=== PATIENT | female | born 1965 | race Caucasian/White ===

== ENCOUNTER 2022-09-21 13:28 | Emergency (ER) | payer OTHER ==
[~2022-09-21] VITALS: Ht 165.1 cm; Wt 43.8 kg
[2022-09-21 14:02] VITALS: BP 108/81
--- NOTE | 2022-09-21 14:02 | NUR ---
PT AMBULATED TO BED 6
[2022-09-21] MEDS ORDERED: fentaNYL citrate 0.05 MG/ML VIAL IM ONE (14:10)
--- NOTE | 2022-09-21 14:21 | NUR ---
ADMINISTERED SCHEDULED MEDS PER ER MD ORDERS
[2022-09-21 14:40] LABS: BASOPHILS # (AUTO) 0.1 K/uL (0.00-0.22); BASOPHILS % (AUTO) 1.5 % (0.0-2.0); EOSINOPHILS # (AUTO) 0.2 K/uL (0-0.4); HEMATOCRIT 41.4 % (36-48); HEMOGLOBIN 14.1 g/dL (12.0-16.0); LYMPHOCYTES # (AUTO) 1.9 K/uL (2.5-16.5); LYMPHOCYTES % (AUTO) 21.2 % (20.5-51.1); MEAN CORPUSCULAR HEMOGLOBIN 37 pg (27-31); MEAN CORPUSCULAR HGB CONC 34 g/dL (33-37); MEAN CORPUSCULAR VOLUME 108.5 fL (80-94); MONOCYTES # (AUTO) 0.7 K/uL (0.8-1.0); MONOCYTES % (AUTO) 7.9 % (1.7-9.3); NEUTROPHILS % (AUTO) 67.4 % (42.2-75.2); PLATELET COUNT (AUTO) 176 K/uL (140-450); RED BLOOD CELL COUNT(AUTO) 3.82 MIL/uL (4.20-5.40); RED CELL DISTRIBUTION WIDTH 15.4 % (11.6-13.7); WHITE BLOOD COUNT (AUTO) 8.9 K/uL (4.8-10.8)
--- NOTE | 2022-09-21 14:50 | NUR ---
XR TECH AT BEDSIDE
[2022-09-21 15:05] LABS: ANION GAP 19.1 (8-16); CREATININE 0.7 mg/dL (0.6-1.3); POTASSIUM 4.1 mmol/L (3.5-5.1)
[2022-09-21] MEDS ORDERED: IBUP-2218 PO (15:22)
[2022-09-21] MEDS ORDERED: ACET-10509 PO (15:22)
[2022-09-21 15:28] VITALS: BP 113/77
--- NOTE | 2022-09-21 15:28 | NUR ---
pt left without dx paper, see discharge/dispo note
== END 2022-09-21 15:28 | disposition home or self-care (01) ==
LOC: MED 13:28
DX: M70.71 Other bursitis of hip, right hip (principal); F17.200 Nicotine dependence, unspecified, uncomplicated; Z79.899 Other long term (current) drug therapy; Z71.6 Tobacco abuse counseling; W19.XXXA Unspecified fall, initial encounter; Y93.89 Activity, other specified; Y92.89 Other specified places as the place of occurrence of the external cause; Y99.8 Other external cause status
CPT/HCPCS: 36415; 73502; 73552; 80048; 85025; 96372; 99284; J3010

== ENCOUNTER 2022-11-16 11:20 | Emergency (ER) | payer OTHER ==
[~2022-11-16] VITALS: Ht 154.9 cm; Wt 43.1 kg
[~2022-11-16 11:20] MED LIST: ACET-10509 PO; IBUP-2218 PO
[2022-11-16 11:29] VITALS: BP 90/50
--- NOTE | 2022-11-16 11:31 | NUR ---
PATIENT PRESENTS TO THE ED WITH REPORT OF RECTAL BLEEDING X 4 DAYS. PATIETN REPORTS GENERALIZED WEAKNESS, DENIES N/V. AMBULATORY WITH STEADY GAIT, ALERT AND ORIENTED X 4. NO S/S OF ACUTE DISTRESS. PMH COPD
[2022-11-16 12:05] LABS: BASOPHILS # (AUTO) 0.1 K/uL (0.00-0.22); BASOPHILS % (AUTO) 1.5 % (0.0-2.0); EOSINOPHILS # (AUTO) 0.1 K/uL (0-0.4); EOSINOPHILS % (AUTO) 2.3 % (0.0-4.0); HEMATOCRIT 35.2 % (36-48); HEMOGLOBIN 11.9 g/dL (12.0-16.0); LYMPHOCYTES # (AUTO) 2.1 K/uL (2.5-16.5); LYMPHOCYTES % (AUTO) 35.6 % (20.5-51.1); MEAN CORPUSCULAR HEMOGLOBIN 37 pg (27-31); MEAN CORPUSCULAR HGB CONC 34 g/dL (33-37); MEAN CORPUSCULAR VOLUME 109.4 fL (80-94); MONOCYTES # (AUTO) 0.8 K/uL (0.8-1.0); MONOCYTES % (AUTO) 13.5 % (1.7-9.3); NEUTROPHILS # (AUTO) 2.8 K/uL (1.8-7.7); NEUTROPHILS % (AUTO) 47.1 % (42.2-75.2); PLATELET COUNT (AUTO) 193 K/uL (140-450); RED BLOOD CELL COUNT(AUTO) 3.22 MIL/uL (4.20-5.40); RED CELL DISTRIBUTION WIDTH 14.9 % (11.6-13.7)
[2022-11-16 12:22] LABS: ALBUMIN 3.8 g/dL (3.4-5.0); CARBON DIOXIDE 26.1 mmol/L (21-32); CREATININE 0.7 mg/dL (0.6-1.3); POTASSIUM 3.1 mmol/L (3.5-5.1); TOTAL BILIRUBIN 0.1 mg/dL (0.0-1.0)
--- NOTE | 2022-11-16 19:30 | NUR ---
56yo F here for rectal bleeding x 1 weeks getting worse over 2 days. Admits to lower abd pain, 9/10 at this time. History of rectal prolapse. Abdomen soft, nontender, nondistended. Attached to monitor. Will start IV. Pending CT scan of abdomen at this time.
[2022-11-16] MEDS ORDERED: MORPHINE SULFATE 4 MG/ML SYR IVP ONE (20:30)
--- NOTE | 2022-11-16 20:32 | NUR ---
Complaining of 9/10 lower abdominal pain. Morphine 4mg IV given
[2022-11-16] MEDS ORDERED: POTASSIUM CHLORIDE 10 MEQ TABER PO ONE (21:10)
[2022-11-16] MEDS ORDERED: ACET-10509 PO (21:11)
--- NOTE | 2022-11-16 21:30 | NUR ---
Abdominal pain improved to 5/10. No distress now.
[2022-11-16 22:12] VITALS: BP 133/88
--- NOTE | 2022-11-16 22:15 | NUR ---
Cleared to discharge home. Instructions given. CD of CT scan provided to pt. IV removed. Ambulated out of ED c steady gait. No distress. 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
== END 2022-11-16 22:15 | disposition home or self-care (01) ==
LOC: MED 11:20
DX: K52.9 Noninfective gastroenteritis and colitis, unspecified (principal); E87.6 Hypokalemia; J44.9 Chronic obstructive pulmonary disease, unspecified; F41.9 Anxiety disorder, unspecified; F17.210 Nicotine dependence, cigarettes, uncomplicated; Z79.899 Other long term (current) drug therapy; Z79.1 Long term (current) use of non-steroidal anti-inflammatories (NSAID)
CPT/HCPCS: 36415; 71045; 74177; 80053; 85025; 96374; 99285; J2270; Q9967

== ENCOUNTER 2023-01-03 19:42 | Emergency (ER) | payer MEDICAID, OTHER ==
[~2023-01-03] VITALS: Ht 167.6 cm; Wt 44.5 kg
[2023-01-03 19:49] VITALS: BP 121/82
--- NOTE | 2023-01-03 19:49 | NUR ---
[facility] TO BED #5
--- NOTE | 2023-01-03 20:18 | NUR ---
Dr. Schaeffer examining patient.
--- NOTE | 2023-01-03 20:30 | NUR ---
57 Y/O F presents with pain 10/10 [id number] from buttocks and pt stated "i have not followed up with any doctors." pt is a&ox3, skin intact, verbally agressive, respirations even and unlabored. pt continuiusly asked for pain meds and tylenol. pt appeared intoxicated and pt stated "i drink everyday and today i drank a pint of liquor." PMH- copd, colonoscopy NKA
--- NOTE | 2023-01-03 20:30 | NUR ---
pt yelling " i need a doctor no one is helping me i want medication where is my medication if something happens i will angelina you guys and you guys will be fucked." pt was educated on how she needs to be examined by a doctor before the nurse can administer any medication.
[2023-01-03] MEDS: ACETAMINOPHEN 325 MG TAB PO ONE (20:52)
--- NOTE | 2023-01-03 21:00 | NUR ---
pt continuing to be verbal and yell "i need a docotr i need to be seen i want tylenol." pt was reminded tylenol was administed once doctor put in orders. pt stated " its not workiong i need more meds."
[2023-01-03 21:03] LABS: BASOPHILS % (AUTO) 0.8 % (0.0-2.0); EOSINOPHILS % (AUTO) 0.5 % (0.0-4.0); HEMATOCRIT 39.1 % (36-48); HEMOGLOBIN 13.1 g/dL (12.0-16.0); LYMPHOCYTES % (AUTO) 15.3 % (20.5-51.1); MEAN CORPUSCULAR HEMOGLOBIN 37 pg (27-31); MEAN CORPUSCULAR HGB CONC 34 g/dL (33-37); MEAN CORPUSCULAR VOLUME 110.3 fL (80-94); MONOCYTES # (AUTO) 0.5 K/uL (0.8-1.0); MONOCYTES % (AUTO) 8.4 % (1.7-9.3); NEUTROPHILS # (AUTO) 4.9 K/uL (1.8-7.7); PLATELET COUNT (AUTO) 146 K/uL (140-450); RED BLOOD CELL COUNT(AUTO) 3.55 MIL/uL (4.20-5.40); WHITE BLOOD COUNT (AUTO) 6.5 K/uL (4.8-10.8)
[2023-01-03 21:25] LABS: ALBUMIN 3.5 g/dL (3.4-5.0); ANION GAP 27.3 (8-16); ASPARTATE AMINOTRANSFERASE 308 U/L (15-37); CARBON DIOXIDE 21.6 mmol/L (21-32); CHLORIDE 95 mmol/L (98-107); CREATININE 0.8 mg/dL (0.6-1.3); GFR ARICAN-AMERICAN 95 mL/min (>90); GLUCOSE 86 mg/dL (74-106); POTASSIUM 3.9 mmol/L (3.5-5.1); SODIUM SERUM 140 mmol/L (136-145); TOTAL BILIRUBIN 0.5 mg/dL (0.0-1.0); UREA NITROGEN, BLOOD 18 mg/dL (7-18)
--- NOTE | 2023-01-03 21:25 | NUR ---
[place] in EDM - 01/04/23 at 0042 by MARIA TPB pt refused another IV after infiltration of first IV due to pt tugging on IV line. pt stated " I do not need fluids or whatever i need pain meds or tylenol."
[2023-01-03 21:28] LABS: ACETAMINOPHEN < 0.5 ug/ml (10-30)
--- NOTE | 2023-01-03 21:30 | NUR ---
pt continues to yell "nurse nurse nurse nurse nurse, i need pain meds." pt reminded tylenol was administered." pt went on to call the nurs "a bitch" and roll over in bed.
[2023-01-03] MEDS: NACL 0.9% 1,000 ML IV ONE (22:33)
--- NOTE | 2023-01-03 23:27 | NUR ---
IV INFILITRATED. IV REMOVED. ERMD NOTIFIED
--- NOTE | 2023-01-03 23:30 | NUR ---
pt refused another IV attempt after first infiltration due to pt tugging on line. "pt stated i do not need fluids or whatever i need pain meds and tylenol."
--- NOTE | 2023-01-03 23:45 | NUR ---
pt stated "i want to go home, i want to go home and sleep. im tired."
--- NOTE | 2023-01-03 23:52 | NUR ---
PT AMBULATED TO RESTROOM WITHOUT ASSISTANCE
--- NOTE | 2023-01-04 00:03 | NUR ---
Dr. Rivas examining patient.
--- NOTE | 2023-01-04 00:15 | NUR ---
pt ambulated to restroom without assistance
--- NOTE | 2023-01-04 00:24 | NUR ---
Patient discharged with v/s stable. Written and verbal after care instructions given and explained. Patient verbalized understanding. Ambulatory with steady gait. All questions addressed prior to discharge. Advised to follow up with PMD.
== END 2023-01-04 00:24 | disposition home or self-care (01) ==
LOC: MED 19:42
DX: K62.89 Other specified diseases of anus and rectum (principal); F10.129 Alcohol abuse with intoxication, unspecified; E86.0 Dehydration; J44.9 Chronic obstructive pulmonary disease, unspecified; F41.9 Anxiety disorder, unspecified; F17.200 Nicotine dependence, unspecified, uncomplicated; Z86.69 Personal history of other diseases of the nervous system and sense organs; Z79.899 Other long term (current) drug therapy; Z79.1 Long term (current) use of non-steroidal anti-inflammatories (NSAID); Y90.8 Blood alcohol level of 240 mg/100 ml or more
CPT/HCPCS: 36415; 80053; 84484; 85025; 93005; 96360; 99284; G0480; G0482; J7030

== ENCOUNTER 2023-12-10 23:15 | Inpatient (IN) | payer OTHER ==
[~2023-12-10] VITALS: Ht 160 cm; Wt 44.0 kg
[2023-12-10 23:29] VITALS: BP 113/74; PULSE 94; RESP 20; TEMP 97; O2SAT 98
[2023-12-11] MEDS ORDERED: MORPHINE SULFATE 4 MG/ML SYR ONE (01:18)
[2023-12-11] MEDS: MORPHINE SULFATE 4 MG/ML SYR IVP ONE ×2 (01:29→03:50)
[2023-12-11] MEDS: NACL 0.9% 1,000 ML IV ONE (01:32)
[2023-12-11 01:33] LABS: BASOPHILS # (AUTO) 0.1 K/uL (0.00-0.22); BASOPHILS % (AUTO) 1.2 % (0.0-2.0); EOSINOPHILS # (AUTO) 0.1 K/uL (0-0.4); EOSINOPHILS % (AUTO) 1.3 % (0.0-4.0); HEMOGLOBIN 12.3 g/dL (12.0-16.0); LYMPHOCYTES # (AUTO) 2.1 K/uL (2.5-16.5); LYMPHOCYTES % (AUTO) 23.8 % (20.5-51.1); MEAN CORPUSCULAR HEMOGLOBIN 33 pg (27-31); MEAN CORPUSCULAR HGB CONC 33 g/dL (33-37); MEAN CORPUSCULAR VOLUME 98.4 fL (80-94); MONOCYTES # (AUTO) 0.9 K/uL (0.8-1.0); MONOCYTES % (AUTO) 10.3 % (1.7-9.3); NEUTROPHILS # (AUTO) 5.5 K/uL (1.8-7.7); NEUTROPHILS % (AUTO) 63.4 % (42.2-75.2); PLATELET COUNT (AUTO) 219 K/uL (140-450); RED BLOOD CELL COUNT(AUTO) 3.77 MIL/uL (4.20-5.40); RED CELL DISTRIBUTION WIDTH 19.7 % (11.6-13.7); WHITE BLOOD COUNT (AUTO) 8.6 K/uL (4.8-10.8)
[2023-12-11 02:00] LABS: BILIRUBIN,URINE NEGATIVE (NEGATIVE); BLOOD, URINE NEGATIVE (NEGATIVE); LEUKOCYTE ESTERASE ,URINE 1+ (NEGATIVE); NITRITE, URINE NEGATIVE (NEGATIVE); PH,URINE 7.5 (5.0-9.0); PROTEIN,URINE TRACE (NEGATIVE); UGLUCOSE NEGATIVE (NEGATIVE); UROBILINOGEN,URINE 0.2 EU/dL (0.2 - 1)
[2023-12-11 02:12] LABS: ANION GAP 11.6 (8-16); CALCIUM 9.3 mg/dL (8.5-10.1); CARBON DIOXIDE 32.4 mmol/L (21-32); CREATININE 0.9 mg/dL (0.6-1.3)
[2023-12-11 02:16] LABS: ALBUMIN 3.4 g/dL (3.4-5.0); BILIRUBIN,DIRECT 0.1 mg/dL (0.0-0.3); TOTAL BILIRUBIN 0.1 mg/dL (0.0-1.0); TOTAL PROTEIN, SERUM 8.8 g/dL (6.4-8.2)
[2023-12-11 02:57] LABS: APPEARANCE,URINE CLEAR (CLEAR); COLOR,URINE YELLOW (YELLOW)
[2023-12-11 03:18] LABS: RBC,URINE 0-5 /HPF (0-5)
[2023-12-11 03:19] LABS: BACTERIA,URINE 1+ /HPF (None Seen); SQUAMOUS EPITHELIAL CELL,UR 4-10 (MOD) /LPF (0-3 (FEW))
[2023-12-11] MEDS ORDERED: PIPERACILLIN/TAZOBACTAM 3.375 GM VIAL IV ONE (03:23)
[2023-12-11] MEDS: PIPERACILLIN/TAZOBACTAM 3.375 GM in DEXTROSE 5% 50 ML IV ONE (03:28)
[2023-12-11] MEDS ORDERED: GABA300C PO (03:30)
[2023-12-11] MEDS ORDERED: METO-485 PO (03:30)
[2023-12-11] MEDS ORDERED: ATA25 PO (03:30)
[2023-12-11] MEDS ORDERED: ACETAMINOPHEN 325 MG TAB PO PRN (04:05)
[2023-12-11] MEDS ORDERED: KCL 20 MEQ IN 100 mL PREMIX 200 ML IV PRN (04:05)
[2023-12-11] MEDS ORDERED: POTASSIUM CHLORIDE 10 MEQ TABER PO PRN (04:05)
[2023-12-11] MEDS ORDERED: MAGNESIUM OXIDE 400 MG TAB PO PRN (04:05)
[2023-12-11] MEDS: NACL 0.9% 1,000 ML IV SCH (04:14)
[2023-12-11 05:30] VITALS: BP 114/76; RESP 18; TEMP 97.1; O2SAT 95
[2023-12-11] MEDS: ONDANSETRON 4 MG/2 ML VIAL IVP PRN (06:49)
[2023-12-11 08:00] VITALS: BP 86/65; PULSE 69; RESP 16; TEMP 97.6; O2SAT 96
[2023-12-11] MEDS: LORazepam 2 MG/ML VIAL IVP PRN (12:28)
[2023-12-11] MEDS: PIPERACILLIN/TAZOBACTAM 3.375 GM in DEXTROSE 5% 50 ML IV SCH (12:57)
[2023-12-11 16:00] VITALS: BP 109/80; PULSE 76; RESP 17; TEMP 97; O2SAT 95
[2023-12-11] MEDS: MORPHINE SULFATE 2 MG/ML SYR IVP PRN (16:55)
[2023-12-11 20:00] VITALS: BP 117/79; PULSE 63; RESP 18; TEMP 97.7; O2SAT 95
[2023-12-11] MEDS: MEDS-TO-BEDS MC SCH (21:06)
[2023-12-11] MEDS: HYDROcodone/APAP 5/325 MG 1 TAB TAB PO PRN (21:17)
[2023-12-12 07:37] LABS: BASOPHILS # (AUTO) 0.1 K/uL (0.00-0.22); BASOPHILS % (AUTO) 0.9 % (0.0-2.0); EOSINOPHILS # (AUTO) 0.1 K/uL (0-0.4); EOSINOPHILS % (AUTO) 2.6 % (0.0-4.0); HEMATOCRIT 33.3 % (36-48); LYMPHOCYTES # (AUTO) 1.7 K/uL (2.5-16.5); LYMPHOCYTES % (AUTO) 30.3 % (20.5-51.1); MEAN CORPUSCULAR HEMOGLOBIN 33 pg (27-31); MEAN CORPUSCULAR HGB CONC 33 g/dL (33-37); MEAN CORPUSCULAR VOLUME 98.8 fL (80-94); MONOCYTES # (AUTO) 0.6 K/uL (0.8-1.0); MONOCYTES % (AUTO) 11.2 % (1.7-9.3); NEUTROPHILS # (AUTO) 3.1 K/uL (1.8-7.7); PLATELET COUNT (AUTO) 180 K/uL (140-450); RED BLOOD CELL COUNT(AUTO) 3.37 MIL/uL (4.20-5.40); RED CELL DISTRIBUTION WIDTH 19.2 % (11.6-13.7); WHITE BLOOD COUNT (AUTO) 5.6 K/uL (4.8-10.8)
[2023-12-12 07:47] LABS: ALBUMIN 2.6 g/dL (3.4-5.0); CARBON DIOXIDE 22.6 mmol/L (21-32); CREATININE 0.7 mg/dL (0.6-1.3); MAGNESIUM 1.4 mg/dL (1.8-2.4); POTASSIUM 3.6 mmol/L (3.5-5.1); TOTAL BILIRUBIN 0.3 mg/dL (0.0-1.0)
[2023-12-12 08:00] VITALS: BP 158/99; PULSE 76; RESP 18; TEMP 96.9; O2SAT 95
[2023-12-12] MEDS: MAG SULF 2000 MG/WATER PREMIX 50 ML IV PRN (08:58)
[2023-12-12] MEDS ORDERED: AMOX-999 PO (14:38)
[2023-12-12] MEDS ORDERED: ONDA-188 PO (14:38)
[2023-12-12 16:00] VITALS: BP 106/71; PULSE 75; RESP 18; TEMP 97.2; O2SAT 93
[2023-12-12 16:07] VITALS: BP 158/99; PULSE 63; RESP 18; TEMP 96.9
== END 2023-12-12 16:45 | disposition home or self-care (01) | DRG 249 ==
LOC: MED 23:15 → MMU 12-11 04:07 → MTU 12-11 04:07
PROVIDERS: ADMIT Student in an Organized Health Care Education/Training Program; ATTEND Student in an Organized Health Care Education/Training Program
DX: K52.9 Noninfective gastroenteritis and colitis, unspecified (principal); K56.609 Unspecified intestinal obstruction, unspecified as to partial versus complete obstruction; E86.1 Hypovolemia; I10 Essential (primary) hypertension; E78.5 Hyperlipidemia, unspecified; Z79.899 Other long term (current) drug therapy
CPT/HCPCS: 36415; 80048; 80053; 80076; 81001; 83735; 85025; 87040; 87081; 87086; 96374; 96375; 99285; J1644; J2060; J2270; J2405; J2543; J3475; J7060

== ENCOUNTER 2024-05-23 10:29 | Emergency (ER) | payer OTHER ==
[~2024-05-23] VITALS: Ht 165.1 cm; Wt 38.7 kg
[~2024-05-23 10:29] MED LIST changes: -ACET-10509 PO; +ACET500T99 PO; +AMOX-999 PO; +ATA25 PO; +GABA300C PO; +ONDA-188 PO
[2024-05-23 10:46] VITALS: BP 155/102; PULSE 110; RESP 18; TEMP 98.1; O2SAT 100
[2024-05-23 11:53] LABS: APPEARANCE,URINE TURBID (CLEAR); BILIRUBIN,URINE 3+ (NEGATIVE); BLOOD, URINE 2+ (NEGATIVE); LEUKOCYTE ESTERASE ,URINE TRACE (NEGATIVE); NITRITE, URINE NEGATIVE (NEGATIVE); PROTEIN,URINE 2+ (NEGATIVE); UGLUCOSE NEGATIVE (NEGATIVE)
[2024-05-23 11:54] LABS: COLOR,URINE AMBER (YELLOW)
[2024-05-23 12:00] LABS: ICTOTEST POSITIVE (NEGATIVE)
[2024-05-23 12:04] LABS: BACTERIA,URINE FEW /HPF (None Seen); SQUAMOUS EPITHELIAL CELL,UR 4-10 (MOD) /LPF (0-3 (FEW))
[2024-05-23] MEDS: NACL 0.9% 1,000 ML IV ONE (12:10)
[2024-05-23] MEDS: MORPHINE SULFATE 4 MG/ML SYR IVP ONE (12:13)
[2024-05-23] MEDS: ONDANSETRON 4 MG/2 ML VIAL IVP ONE (12:14)
[2024-05-23 12:27] LABS: BASOPHILS # (AUTO) 0.1 K/uL (0.00-0.22); BASOPHILS % (AUTO) 0.6 % (0.0-2.0); HEMATOCRIT 37.7 % (36-48); HEMOGLOBIN 12.1 g/dL (12.0-16.0); LYMPHOCYTES # (AUTO) 1.2 K/uL (2.5-16.5); LYMPHOCYTES % (AUTO) 12.4 % (20.5-51.1); MEAN CORPUSCULAR HEMOGLOBIN 33 pg (27-31); MEAN CORPUSCULAR HGB CONC 32 g/dL (33-37); MEAN CORPUSCULAR VOLUME 101.5 fL (80-94); MONOCYTES # (AUTO) 0.4 K/uL (0.8-1.0); MONOCYTES % (AUTO) 4.4 % (1.7-9.3); NEUTROPHILS # (AUTO) 7.9 K/uL (1.8-7.7); NEUTROPHILS % (AUTO) 82.6 % (42.2-75.2); PLATELET COUNT (AUTO) 121 K/uL (140-450); RED BLOOD CELL COUNT(AUTO) 3.71 MIL/uL (4.20-5.40); RED CELL DISTRIBUTION WIDTH 18.6 % (11.6-13.7); WHITE BLOOD COUNT (AUTO) 9.6 K/uL (4.8-10.8)
[2024-05-23 12:32] LABS: ANION GAP 35.2 (8-16); CALCIUM 8.5 mg/dL (8.5-10.1); CARBON DIOXIDE 11.7 mmol/L (21-32); CREATININE 1.1 mg/dL (0.6-1.3); POTASSIUM 3.9 mmol/L (3.5-5.1)
[2024-05-23 12:39] LABS: ALBUMIN 4.1 g/dL (3.4-5.0); BILIRUBIN,DIRECT 0.1 mg/dL (0.0-0.3); TOTAL BILIRUBIN 0.9 mg/dL (0.0-1.0); TOTAL PROTEIN, SERUM 8.8 g/dL (6.4-8.2)
[2024-05-23 14:18] VITALS: BP 120/77; PULSE 68; RESP 16; TEMP 97.5; O2SAT 100
== END 2024-05-23 14:17 | disposition home or self-care (01) ==
LOC: MED 10:29
DX: K52.9 Noninfective gastroenteritis and colitis, unspecified (principal); J44.9 Chronic obstructive pulmonary disease, unspecified; Z98.890 Other specified postprocedural states; Z79.899 Other long term (current) drug therapy
CPT/HCPCS: 36415; 74177; 80048; 80076; 81001; 83690; 85025; 87086; 96361; 96374; 96375; 99285; J2270; J2405; Q9967; J7030